=== PATIENT | female | born 1980 | race Caucasian/White ===

== ENCOUNTER 2019-08-12 09:08 | Emergency (ER) | payer OTHER, SELFPAY ==
--- NOTE | 2019-08-12 09:34 | DI.RAD.S_ITS ---
PROCEDURE: XR KNEE LT 1TO2V INDICATIONS: pain TECHNIQUE: 2 views of the knee were acquired. COMPARISON: None. FINDINGS: The patient was unable to be positioned for the standard sunrise view. Bones: No fractures or dislocations. No suspicious bony lesions. Soft tissues: No joint effusion. No suspicious soft tissue calcifications. IMPRESSION: No acute abnormality is seen on this two-view study of the knee. If there is strong clinical suspicion for internal derangement of this joint, please consider a dedicated MRI for further evaluation (assuming that there is no contraindication to MRI). Dictated by: Jeremias Vergara M.D. on 08/12/2019 at 8:51 Approved by: Jeremias Vergara M.D. on 08/12/2019 at 8:52
[2019-08-12 09:57] VITALS: PULSE 71; RESP 18; TEMP 36.7; O2SAT 100; BMI 20.5
[2019-08-12 10:06] VITALS: BP 117/80; PULSE 66; RESP 18; O2SAT 100
--- NOTE | 2019-08-12 11:35 | ED.LOWEXIN ---
HPI - Extremity Injury (Lower) <Al LaasHARJEET PlazaP - Last Filed: 08/13/19 02:32> General Chief Complaint: Extremity Injury, Lower Stated Complaint: something snapped and sharp pain L knee Time Seen by Provider: 08/12/19 11:05 Source: patient Mode of arrival: Wheelchair Limitations: no limitations History of Present Illness HPI Narrative: This is a 39-year-old female, nonsmoker, who presents to ED with significant other with chief complain of suprapatellar and lateral knee pain with mild swelling since last night. Patient initially felt something snapped on her lateral left knee when she was walking. Patient reports difficulty bearing weight and feel unstable in her left leg. Patient was actually seen by her primary care physician Dr. 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 Patient reports pain increases with flexing affected leg. She reports some muscle spasm on anterior thigh and constant aches. Patient reports mildly decreased sensation on her left leg. Patient reports intact sensation. Otherwise, patient denies any previous injuries or surgeries unaffected knee. Related Data Previous Rx's Medication Instructions Recorded hydroxyzine HCl 25 mg tablet 25 mg PO QID PRN #30 tab 12/05/18 norgestimate 0.25 mg-ethinyl 1 tab PO DAILY #168 tab 12/05/18 estradiol 35 mcg tablet cyclobenzaprine 5 - 10 mg PO BID PRN #7 tab 08/12/19 Allergies Allergy/AdvReac Type Severity Reaction Status Date / Time No Known Drug Allergies Allergy Verified 08/12/19 09:57 Review of Systems <Al AlasLICHA Robledo - Last Filed: 08/13/19 02:32> Review of Systems Narrative: General: Denies fever, chills, fatigue, malaise, sweats. HEENT: Denies sinus pain, ear pain, sore throat, difficulty swallowing, dizziness. Respiratory: Denies dyspnea, cough, wheezing, hemoptysis, sputum. Cardiovascular: Denies chest pain, palpitations, orthopnea, edema. Gastrointestinal: Denies nausea, vomiting, abdominal pain, diarrhea, constipation, melena. : Denies dysuria, frequency, incontinence, hematuria, urinary retention. Musculoskeletal: See HPI Skin: Denies rash, skin lesions, or other. Neurologic: Denies weakness, headache, numbness, change in speech, confusion, seizures, incoordination. Psychiatric: No concerning psychosocial issues. 12-point review of systems is negative except for those stated above. Patient History <LICHA Nicole - Last Filed: 08/13/19 02:32> Medical History Abnormal Pap smear of cervix (Resolved ~10/22/10) Acne (Chronic) ADD (attention deficit disorder) (Chronic) Bipolar disorder (Chronic ~2006) Chicken pox (Resolved ~1986) Osteoarthritis (Chronic ~08/20/10) Seasonal allergies (Chronic ~1993) Skin tag (Chronic) Surgical History H/O dilation and curettage (Resolved) Family History Father Diabetes mellitus Hypertension Mother Hypertension Mental health problem Social History marital status: unmarried,single number of children: 0 household members: significant other lives independently: Yes education level: college occupational status: employed Smoking Status: Never smoker alcohol intake: current substance use type: does not use Smoking Status: Never smoker Exam <LICHA Nicole - Last Filed: 08/13/19 02:32> Narrative Exam Narrative: General appearance: well developed, well nourished, in moderate distress and in tears during knee exam from discomfort. Head: normocephalic, atraumatic, no scalp lesions, non-tender. ENT: Hearing grossly intact. Nose without bleeding, purulent discharge or deviation. Mucous membrane moist, no mucosal lesion. Throat without erythema, tonsillar hypertrophy or exudate. Uvula in midline, airway patent. Neck/Thyroid: neck supple, full range of motion, no visible masses or meningeal signs. No JVD, non-tender without lymphadenopathy. Skin: no suspicious rashes, lesions over visible areas. Warm and dry and appropriate color for ethnicity. Heart: no clubbing, no cyanosis, no edema. Lungs: Breathing even and unlabored. No stridor. No accessory muscles used. Able to speak in full sentences. Chest: normal shape and expansion. Abdomen: non-obese, non-distended. Neurologic: alert and oriented. Cognitive exam, CARDIOVASCULAR SURGICAL TECH and PNS grossly intact on informal exam. Psych: good eye contact, normal affect. Initial Vital Signs Initial Vital Signs: Vital Signs Temperature 98.1 F 08/12/19 09:57 Pulse Rate 71 08/12/19 09:57 Respiratory Rate 18 08/12/19 09:57 Pulse Oximetry 100 08/12/19 09:57 Extrem Left lower extremity: knee Details: normal to inspection, tenderness Location: of the pre-patellar area and of the infrapatellar area (lateral knee), swelling Location: of the patella (lateral) and of the pre-patellar area (mild), abnormal ROM Details: pain with active ROM, pain with passive ROM and with range as follows (decreased flexion due to pain) and knee ligament exam normal Details: Ky's test normal (unable to fully exam due to discomfort) and foot Details: toes with normal ROM, no edema, vascular exam Details: dorsalis pedis pulse present and motor-sensory exam Details: light-touch normal; no tenderness <Kane Silveira MD - Last Filed: 08/13/19 07:55> Initial Vital Signs Initial Vital Signs: Vital Signs Temperature 98.1 F 08/12/19 09:57 Pulse Rate 71 08/12/19 09:57 Respiratory Rate 18 08/12/19 09:57 Pulse Oximetry 100 08/12/19 09:57 Procedures <LICHA Nicole - Last Filed: 08/13/19 02:32> Orthopedic Splinting/Casting Injury #1: Side: left Lower Extremity Injury Location: knee Lower Extremity Immobilizer: knee immobilizer Other Orthopedic Equipment: crutches Post splinting neuro exam: intact Post splinting vascular exam: intact Placed by: Nursing Scores <LICHA Nicole - Last Filed: 08/13/19 02:32> GCS [place] coma scale eye opening: Spontaneous [place] coma scale verbal response: Orientated [place] coma scale motor response: Obey commands Ronald coma scale total score: 15 Course <LICHA Nicole - Last Filed: 08/13/19 02:32> Orders Ordered: ED Orders 08/12/19 09:34 XR knee LT 1to2V Stat Vital Signs Vital signs: Vital Signs - 8 hr 08/12/19 09:57 08/12/19 10:06 Temperature 98.1 F Pulse Rate 71 66 Respiratory Rate 18 18 Blood Pressure [Left Arm] 117/80 Pulse Oximetry 100 100 <Kane Silveira MD - Last Filed: 08/13/19 07:55> Orders Ordered: ED Orders 08/12/19 09:34 XR knee LT 1to2V Stat Vital Signs Vital signs: Vital Signs - 8 hr 08/12/19 09:57 08/12/19 10:06 Temperature 98.1 F Pulse Rate 71 66 Respiratory Rate 18 18 Blood Pressure [Left Arm] 117/80 Pulse Oximetry 100 100 MDM - Extremity Injury (Lower) <LICHA Nicole - Last Filed: 08/13/19 02:32> Differential Diagnosis Differential diagnosis: Likely acute internal derangement of knee and other (knee sprain) Medical Records Attestation: I reviewed the patient's medical records. Imaging Data Xr-Knee LT: Radiologist's Impression: [address] [address] XRay Report Signed Patient: Isiah Angulo AMR#: [id number] : 1980Acct:[id number] Age/Sex: 39 / FDate of Service: 08/12/19 Loc: ED Accession Number: [id number] Procedure: XR knee LT 1to2V Ordering Provider: Kane Silveira MD PROCEDURE: XR KNEE LT 1TO2V INDICATIONS: pain TECHNIQUE: 2 views of the knee were acquired. COMPARISON: None. FINDINGS: The patient was unable to be positioned for the standard sunrise view. Bones: No fractures or dislocations. No suspicious bony lesions. Soft tissues: No joint effusion. No suspicious soft tissue calcifications. IMPRESSION: No acute abnormality is seen on this two-view study of the knee. If there is strong clinical suspicion for internal derangement of this joint, please consider a dedicated MRI for further evaluation (assuming that there is no contraindication to MRI). Dictated by: Jeremias Vergara M.D. on 08/12/2019 at 8:51 Approved by: Jeremias Vergara M.D. on 08/12/2019 at 8:52 [facility] Narrative Medical decision making narrative: This is a 39-year-old female who presents to ED with nontraumatic left knee pain with popping sensation while she was walking yesterday evening. 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 Patient had decreased mobility unaffected knee due to significant discomfort and was unable to assess adequately. She had intact sensation and pulses distally. There was mild swelling around the patella. Patient is currently waiting for physical therapy referral and treatment. Xray of knee does not appreciate acute fracture or dislocation. Affected knee was splinted on a knee immobilizer and patient discharged to home with crutches after the teaching. Patient advised to follow-up with her primary care physician and may need further imaging test and a referral to orthopedist. Patient advised to use [id number] Tylenol and or Motrin as needed with RICE therapy and muscle relaxant has been prescribed since patient complain of tensed anterior quad muscle discomfort. Patient verbalized understanding and in agreement with the treatment plan. Discharge Plan Departure Patient Disposition: Home Clinical Impression: Knee pain, left anterior Discharge Date/Time: 08/12/19 12:04 Instructions: DI for Knee Pain Activity Restrictions/Additional Instructions: You have been diagnosed with [left anterior knee discomfort, Likely ligamentous injury. X-ray test today does not show acute findings such as fractures or dislocation.]. What to do: *Take your medications as directed. Please use knee immobilizer for support and comfort. Elevate affected limb and use cool packs frequently several times a day next 24-48 hours. You can take [id number] Tylenol 650 up to 4 times a day as needed. Ibuprofen 400 mg to 600 mg up to 3 to 4 times a day with food as needed for discomfort and inflammation. Flexeril has been transmitted to [place] [email or web address] and this is muscle relaxant. In May cause drowsiness so please take precaution such as not driving, drinking alcohol, operating heavy equipments. *Follow up with your primary care provider in 2-3 days, call for an appointment. Let them know you were seen in the ED and that we asked you to be seen in follow up. *Return to ED if you have any new, worsening, or concerning symptoms, such as [increasing tingling, numbness, weakness to affected leg, chest pain, breathing difficulty, unable to tolerate fluids or any acute concerns]. Prescriptions: New cyclobenzaprine 10 mg tablet 5 - 10 mg PO BID PRN (Reason: muscle spasm) Qty: 7 RF: 0 No Action norgestimate-ethinyl estradiol [Estarylla] 0.25-35 mg-mcg tablet 1 tab PO DAILY Qty: 168 RF: 0 hydroxyzine HCl 25 mg tablet 25 mg PO QID PRN (Reason: anxiety) Qty: 30 RF: 0 Referrals: Belén Esposito DO [Primary Care Provider] -
[2019-08-12 11:52] VITALS: BP 112/76; PULSE 73; O2SAT 98
== END 2019-08-12 12:04 | disposition home or self-care (01) ==
PROVIDERS: Emergency Provider Nurse Practitioner Family; PCP Family Medicine
DX: M25.562 Pain in left knee (principal)
CPT/HCPCS: 73560; 99283

== ENCOUNTER → 2022-12-22 07:50 | Outpatient (CLI) | payer OTHER, SELFPAY ==
[2022-12-22 09:10] LABS: Influenza A - CEPHEID Flu A NEGATIVE (NEGATIVE); Influenza B - CEPHEID Flu B NEGATIVE (NEGATIVE); Respiratory Syncytial Virus Negative (Negative)
[2022-12-22 09:24] LABS: COVID-19 CEPHEID 4-PLEX PCR Negative (Negative)
== END ==
PROVIDERS: PCP Family Medicine; Visit Provider Physician Assistant
DX: J02.9 Acute pharyngitis, unspecified (principal); J06.9 Acute upper respiratory infection, unspecified
CPT/HCPCS: 0241U; 87070

== ENCOUNTER 2023-08-31 16:29 | Emergency (ER) | payer OTHER, SELFPAY ==
[2023-08-31] VITALS (16 sets, daily range): BP systolic 112–151; BP diastolic 54–75; PULSE 72–91; RESP 18; TEMP 36.7; O2SAT 94–100; BMI 22.3
--- NOTE | 2023-08-31 16:47 | ED.GIBLEED ---
HPI - GI Bleed <Prabhu Solorzano MD - Last Filed: 09/01/23 07:27> General Chief complaint: Upper Respiratory Symptoms Stated complaint: coughing up bright red blood Time Seen by Provider: 08/31/23 16:36 Source: patient Mode of arrival: Ambulatory History of Present Illness HPI Narrative: Patient here for hemoptysis just prior to arrival. Had bright red blood when she was coughing and spit on the ground. She states she tested positive for COVID about 2 weeks ago and has improved but still has a nonproductive cough until today. No prior history of blood clots in legs or lungs. Denies any chest pain or dyspnea. Denies does not want a test patient in no distress at this time. Related Data Previous Rx's Medication Instructions Recorded albuterol sulfate 90 mcg/actuation 2 puff inhalation Q4-6H PRN 12/22/22 aerosol inhaler shortness of breath or wheezing #6.7 grams norgestimate 0.25 mg-ethinyl See Rx Instructions .Route 06/28/23 estradiol 35 mcg tablet (Kandy) .COMPLEX #84 tabs Allergies Allergy/AdvReac Type Severity Reaction Status Date / Time No Known Drug Allergies Allergy Verified 06/28/23 15:34 Review of Systems <Prabhu Solorzano MD - Last Filed: 09/01/23 07:27> Review of Systems Narrative: GENERAL: negative chills, fatigue, malaise, fever, sweats. HEENT: negative sinus pain, ear pain, sore throat RESPIRATORY: negative dyspnea, positive hemoptysis/cough CARDIOVASCULAR: negative chest pain, palpitations GASTROINTESTINAL: negative nausea, vomiting, abdominal pain : negative dysuria, frequency, hematuria MUSCULOSKELETAL: negative muscle or bony pain SKIN: negative rash, skin lesions NEUROLOGIC: negative weakness, numbness ROS Unobtainable: All systems reviewed & are unremarkable except as noted in HPI and below Patient History <Prabhu Solorzano MD - Last Filed: 09/01/23 07:27> Medical History (Updated 08/31/23 @ 20:23 by Dinorah Hull MD) Skin tag Acne Osteoarthritis (~08/20/10) Seasonal allergies (~1993) ADD (attention deficit disorder) Bipolar disorder (~2006) Chicken pox (~1986) Abnormal Pap smear of cervix (~10/22/10) Surgical History H/O dilation and curettage Family History Father Diabetes mellitus Hypertension Mother Hypertension Mental health problem Social History marital status: unmarried,single number of children: 0 household members: significant other lives independently: Yes education level: college occupational status: employed Smoking Status: Never smoker alcohol intake: current substance use type: does not use Smoking Status: Never smoker Substance Use Type: does not use Exam <Prabhu Solorzano MD - Last Filed: 09/01/23 07:27> Narrative Exam Narrative: GENERAL: in no distress, not toxic not dyspneic HEAD: Normocephalic. EYES: Pupils equal round ENT: Mucous membranes moist. NECK: Trachea midline. CARDIOVASCULAR: Regular rate and rhythm RESPIRATORY: Clear to auscultation. Breath sounds equal bilaterally. No wheezes, rales, or rhonchi. GASTROINTESTINAL: Abdomen soft, non-tender EXTREMITIES: No gross deformities. BACK: No flank tenderness. NEURO: AOx4. SKIN: Warm and dry PSYCH: Not anxious, is cooperative Initial Vital Signs Initial Vital Signs: Vital Signs Pulse Rate 75 08/31/23 16:34 Pulse Oximetry 94 08/31/23 16:34 <Dinorah Hull MD - Last Filed: 09/01/23 00:18> Initial Vital Signs Initial Vital Signs: Vital Signs Pulse Rate 75 08/31/23 16:34 Pulse Oximetry 94 08/31/23 16:34 Course <Prabhu Solorzano MD - Last Filed: 09/01/23 07:27> Orders Ordered: Discontinued Medications Sodium Chloride (Normal Saline 0.9%) 1,000 mls @ 1,000 mls/hr IV BOLUS ONE Stop: 08/31/23 17:45 Last Infusion: 08/31/23 18:42 Dose: Infused Documented By: Infusion: 08/31/23 17:40 Dose: 1,000 mls/hr Documented By: Infusion: 08/31/23 17:26 Dose: 0 mls/hr Documented By: Admin: 08/31/23 17:08 Dose: 1,000 mls/hr Documented By: MARÍA Sodium Chloride (Hypertonic Saline 3%) 50 mls @ 600 mls/hr IV NOW ONE Stop: 08/31/23 19:43 Last Infusion: 08/31/23 20:14 Dose: Infused Documented By: Admin: 08/31/23 20:03 Dose: 600 mls/hr Documented By: Vital Signs Vital signs: Vital Signs - 8 hr 08/31/23 16:34 08/31/23 16:35 08/31/23 16:35 Temperature Pulse Rate 75 74 Respiratory Rate Blood Pressure 150/74 H Pulse Oximetry 94 95 Oxygen Delivery Method 08/31/23 16:37 08/31/23 17:00 08/31/23 17:01 Temperature 98.1 F Pulse Rate 72 84 Respiratory Rate 18 Blood Pressure 150/74 H 112/54 L Pulse Oximetry 95 97 Oxygen Delivery Method Room Air 08/31/23 17:01 08/31/23 17:20 08/31/23 17:35 Temperature Pulse Rate 74 73 Respiratory Rate Blood Pressure 150/67 H Pulse Oximetry 97 100 Oxygen Delivery Method 08/31/23 18:00 08/31/23 18:18 08/31/23 18:30 Temperature Pulse Rate 82 80 Respiratory Rate Blood Pressure 148/70 H Pulse Oximetry 98 99 Oxygen Delivery Method 08/31/23 19:00 08/31/23 19:30 08/31/23 19:52 Temperature Pulse Rate 78 81 Respiratory Rate 18 Blood Pressure 151/73 H Pulse Oximetry 98 98 Oxygen Delivery Method 08/31/23 19:52 08/31/23 20:00 08/31/23 20:00 Temperature Pulse Rate 91 H 78 Respiratory Rate Blood Pressure 138/64 Pulse Oximetry 98 96 Oxygen Delivery Method 08/31/23 20:30 08/31/23 20:31 Temperature Pulse Rate 74 Respiratory Rate 18 Blood Pressure 149/75 H Pulse Oximetry 98 Oxygen Delivery Method <Dinorah Hull MD - Last Filed: 09/01/23 00:18> Orders Ordered: Discontinued Medications Sodium Chloride (Normal Saline 0.9%) 1,000 mls @ 1,000 mls/hr IV BOLUS ONE Stop: 08/31/23 17:45 Last Infusion: 08/31/23 18:42 Dose: Infused Documented By: Infusion: 08/31/23 17:40 Dose: 1,000 mls/hr Documented By: Infusion: 08/31/23 17:26 Dose: 0 mls/hr Documented By: Admin: 08/31/23 17:08 Dose: 1,000 mls/hr Documented By: RB Sodium Chloride (Hypertonic Saline 3%) 50 mls @ 600 mls/hr IV NOW ONE Stop: 08/31/23 19:43 Last Infusion: 08/31/23 20:14 Dose: Infused Documented By: Admin: 08/31/23 20:03 Dose: 600 mls/hr Documented By: AB Vital Signs Vital signs: Vital Signs - 8 hr 08/31/23 16:34 08/31/23 16:35 08/31/23 16:35 Temperature Pulse Rate 75 74 Respiratory Rate Blood Pressure 150/74 H Pulse Oximetry 94 95 Oxygen Delivery Method 08/31/23 16:37 08/31/23 17:00 08/31/23 17:01 Temperature 98.1 F Pulse Rate 72 84 Respiratory Rate 18 Blood Pressure 150/74 H 112/54 L Pulse Oximetry 95 97 Oxygen Delivery Method Room Air 08/31/23 17:01 08/31/23 17:20 08/31/23 17:35 Temperature Pulse Rate 74 73 Respiratory Rate Blood Pressure 150/67 H Pulse Oximetry 97 100 Oxygen Delivery Method 08/31/23 18:00 08/31/23 18:18 08/31/23 18:30 Temperature Pulse Rate 82 80 Respiratory Rate Blood Pressure 148/70 H Pulse Oximetry 98 99 Oxygen Delivery Method 08/31/23 19:00 08/31/23 19:30 08/31/23 19:52 Temperature Pulse Rate 78 81 Respiratory Rate 18 Blood Pressure 151/73 H Pulse Oximetry 98 98 Oxygen Delivery Method 08/31/23 19:52 08/31/23 20:00 08/31/23 20:00 Temperature Pulse Rate 91 H 78 Respiratory Rate Blood Pressure 138/64 Pulse Oximetry 98 96 Oxygen Delivery Method 08/31/23 20:30 08/31/23 20:31 Temperature Pulse Rate 74 Respiratory Rate 18 Blood Pressure 149/75 H Pulse Oximetry 98 Oxygen Delivery Method MDM - GI Bleed <Prabhu Solorzano MD - Last Filed: 09/01/23 07:27> Lab Data 08/31/23 17:00 08/31/23 17:00 Labs: Lab Results 08/31/23 08/31/23 Range/Units 17:00 18:55 WBC 8.8 (4.5-11.0) X10^3/uL RBC 4.65 (4.0-5.2) X10^6/uL Hgb 13.7 (12.0-16.0) g/dL Hct 40.2 (36-46) % MCV 86.6 (80-100) fL MCH 29.4 (26-34) PG MCHC 34.0 (30-36) % RDW 12.8 (11.6-14.8) % Plt Count 368 (150-400) X10^3/uL Neut % (Auto) 63.4 (50-75) % Lymph % (Auto) 24.3 L (25-40) % [place] % (Auto) 9.5 (3-14) % Eos % (Auto) 2.0 (2-4) % Baso % (Auto) 0.8 (0-2) % Neut # (Auto) 5600 (3025-0644) /uL Lymph # (Auto) 2100 (9521-9244) /uL [place] # (Auto) 800 (0-900) /uL Eos # (Auto) 200 (0-450) /uL Baso # (Auto) 100 (0-100) /uL PT 10.7 (9.4-12.5) SECONDS INR 0.9 (0.9-1.3) Sodium 139 (137-145) mmol/L Potassium 3.9 (3.4-5.1) mmol/L Chloride 105 (98-107) mmol/L Carbon Dioxide 29 (22-32) mmol/L BUN 10 (7-17) mg/dL Creatinine 0.62 (0.52-1.04) mg/dL Estimated GFR > 60 (>60) mL/min BUN/Creatinine Ratio 16.1 (6-22) Glucose 101 H (70-100) mg/dL Lactate 0.9 (0.7-2.1) mmol/L Calcium 9.8 (8.4-10.2) mg/dL Total Bilirubin 0.6 (0.2-1.3) mg/dL AST 29 (14-36) IU/L ALT 20 (<35) IU/L Alkaline Phosphatase 82 (38-126) U/L Total Protein 8.8 H (6.3-8.2) g/dL Albumin 4.7 (3.5-5.0) g/dL Globulin 4.1 (1.7-4.1) g/dL Albumin/Globulin Ratio 1.1 (1.0-2.8) Procalcitonin < 0.03 (<0.5) ng/mL Chlamy pneumoniae PCR Not detected (Not Detect) Adenovirus (PCR) Not detected (Not Detect) B.parapertussis DNA PCR Not detected (Not Detecte) Coronavirus OC43 (PCR) Not detected (Not Detect) Coronavirus HKU1 (PCR) Not detected (Not Detect) Coronavirus 229E (PCR) Not detected (Not Detect) SARS-CoV-2 (PCR) Not detected (Not Detecte) Coronavirus NL63 (PCR) Not detected (Not Detect) Human Metapneumovir PCR Not detected (Not Detect) Influenza Type A (PCR) Not detected (Not Detect) Influenza Type B (PCR) Not detected (Not Detect) M. pneumoniae (PCR) Not detected (Not Detect) Parainfluenza 1 (PCR) Not detected (Not Detect) Parainfluenza 2 (PCR) Not detected (Not Detect) Parainfluenza 3 (PCR) Not detected (Not Detect) Parainfluenza 4 (PCR) Not detected (Not Detect) RSV (PCR) Not detected (Not Detect) Entero/Rhino (PCR) Not detected (Not Detect) Imaging Data CT scan - chest: Radiologist's Impression: [place] [id number] CT Scan Report Signed Patient: Isiah Angulo MR#: [id number] : 1980 Acct:[id number] Age/Sex: 43 / F Date of Service: 08/31/23 Loc: ED Accession Number: [id number] Procedure: CT angio chest PE protocol Ordering Provider: Prabhu Solorzano MD PROCEDURE: CT ANGIO CHEST PE PROTOCOL INDICATIONS: Hemoptysis TECHNIQUE: After the administration of intravenous contrast, 2 mm thick sections acquired from the pulmonary apices to the posterior costophrenic angles. 3-dimensional maximum intensity projection (MIP) coronal and sagittal reformats were then acquired through the thorax. For radiation dose reduction, the following was used: automated exposure control, adjustment of mA and/or kV according to patient size. COMPARISON: None. FINDINGS: Image quality: Diagnostic. Pulmonary arteries: Pulmonary arteries are normal in size, and demonstrate no intraluminal filling defects to suggest central pulmonary embolism. Lower Neck: No enlarged lymph nodes. Thyroid: No thyroid nodules which require sonographic follow up, per consensus guidelines. Axillae: No enlarged lymph nodes. Chest Wall: Unremarkable. Bones: Unremarkable. Lungs and Pleura: Multifocal areas nodular opacities within the lungs bilaterally. These are most significant in the upper lobes bilaterally. The largest focus in the left upper lobe measures 3.2 x 3.2 cm. It is cavitary in appearance. There is no appreciable rim enhancement. Heart: Heart size is normal. No pericardial effusion. Thoracic Vessels: No aortic aneurysm. Mediastinum and Belem: Multiple enlarged mediastinal lymph nodes. Esophagus: No wall thickening. No hiatal hernia. Upper Abdomen: Visualized upper abdomen solid organs and bowel loops appear normal. IMPRESSION: No pulmonary embolus. Bilateral pulmonary nodules with a large cavitary nodule in the left upper lobe as above. Appearance is suggestive of infection/inflammation particularly given suspected reactionary adenopathy. These can include etiology such as fungal or mycobacterial. While malignancy cannot be definitively excluded, short interval imaging follow-up after appropriate therapy is recommended to document resolution. Dictated by: Jossy Zhou M.D. on 08/31/2023 at 17:57 Approved by: Jossy Zhou M.D. on 08/31/2023 at 18:00 [facility] Narrative Medical decision making narrative: Patient here for hemoptysis just prior to arrival. Had bright red blood when she was coughing and spit on the ground. She states she tested positive for COVID about 2 weeks ago and has improved but still has a nonproductive cough until today. No prior history of blood clots in legs or lungs. Denies any chest pain or dyspnea. Denies does not want a test patient in no distress at this time. After history and exam CBC CMP PT INR CT PE protocol normal saline MDM CC: Hemoptysis Complicating co-morbidities: Recent COVID Data collected from: Patient Medical records reviewed: No recent visit for this complaint Differential considered: Includes but not limited to pulmonary embolism pneumonia bronchitis Exam documented above, pertinent findings include: Dry cough Lab Test results independently reviewed as above. Pertinent findings: WBC 8.8 hemoglobin 13.7 Imaging studies independently reviewed: CT chest, no pulmonary embolism there is large cavitary lesion left upper lung Consultations: Treatments: Normal saline Re-evaluations: 5:50 p.m.. Update patient finding on CT imaging. No blood clot however lesion in the left lung needs to be reviewed by cutlery grinder. Patient has low risk factors for tuberculosis. Is not homeless. No IV drug use. No recent foreign travel Discussion: Diagnosis: 6:[address] Solorzano: s/o to dr hull, Pulmonary Services has been contacted. Awaiting for call back to review for further disposition <Dinorah Hull MD - Last Filed: 09/01/23 00:18> Lab Data Labs: Lab Results 08/31/23 08/31/23 Range/Units 17:00 18:55 WBC 8.8 (4.5-11.0) X10^3/uL RBC 4.65 (4.0-5.2) X10^6/uL Hgb 13.7 (12.0-16.0) g/dL Hct 40.2 (36-46) % MCV 86.6 (80-100) fL MCH 29.4 (26-34) PG MCHC 34.0 (30-36) % RDW 12.8 (11.6-14.8) % Plt Count 368 (150-400) X10^3/uL Neut % (Auto) 63.4 (50-75) % Lymph % (Auto) 24.3 L (25-40) % [place] % (Auto) 9.5 (3-14) % Eos % (Auto) 2.0 (2-4) % Baso % (Auto) 0.8 (0-2) % Neut # (Auto) 5600 (6087-2990) /uL Lymph # (Auto) 2100 (0147-1798) /uL [place] # (Auto) 800 (0-900) /uL Eos # (Auto) 200 (0-450) /uL Baso # (Auto) 100 (0-100) /uL PT 10.7 (9.4-12.5) SECONDS INR 0.9 (0.9-1.3) Sodium 139 (137-145) mmol/L Potassium 3.9 (3.4-5.1) mmol/L Chloride 105 (98-107) mmol/L Carbon Dioxide 29 (22-32) mmol/L BUN 10 (7-17) mg/dL Creatinine 0.62 (0.52-1.04) mg/dL Estimated GFR > 60 (>60) mL/min BUN/Creatinine Ratio 16.1 (6-22) Glucose 101 H (70-100) mg/dL Lactate 0.9 (0.7-2.1) mmol/L Calcium 9.8 (8.4-10.2) mg/dL Total Bilirubin 0.6 (0.2-1.3) mg/dL AST 29 (14-36) IU/L ALT 20 (<35) IU/L Alkaline Phosphatase 82 (38-126) U/L Total Protein 8.8 H (6.3-8.2) g/dL Albumin 4.7 (3.5-5.0) g/dL Globulin 4.1 (1.7-4.1) g/dL Albumin/Globulin Ratio 1.1 (1.0-2.8) Procalcitonin < 0.03 (<0.5) ng/mL Chlamy pneumoniae PCR Not detected (Not Detect) Adenovirus (PCR) Not detected (Not Detect) B.parapertussis DNA PCR Not detected (Not Detecte) Coronavirus OC43 (PCR) Not detected (Not Detect) Coronavirus HKU1 (PCR) Not detected (Not Detect) Coronavirus 229E (PCR) Not detected (Not Detect) SARS-CoV-2 (PCR) Not detected (Not Detecte) Coronavirus NL63 (PCR) Not detected (Not Detect) Human Metapneumovir PCR Not detected (Not Detect) Influenza Type A (PCR) Not detected (Not Detect) Influenza Type B (PCR) Not detected (Not Detect) M. pneumoniae (PCR) Not detected (Not Detect) Parainfluenza 1 (PCR) Not detected (Not Detect) Parainfluenza 2 (PCR) Not detected (Not Detect) Parainfluenza 3 (PCR) Not detected (Not Detect) Parainfluenza 4 (PCR) Not detected (Not Detect) RSV (PCR) Not detected (Not Detect) Entero/Rhino (PCR) Not detected (Not Detect) MDM Narrative Medical decision making narrative: Patient here for hemoptysis just prior to arrival. Had bright red blood when she was coughing and spit on the ground. She states she tested positive for COVID about 2 weeks ago and has improved but still has a nonproductive cough until today. No prior history of blood clots in legs or lungs. Denies any chest pain or dyspnea. Denies does not want a test patient in no distress at this time. After history and exam CBC CMP PT INR CT PE protocol normal saline MDM CC: Hemoptysis Complicating co-morbidities: Recent COVID Data collected from: Patient Medical records reviewed: No recent visit for this complaint Differential considered: Includes but not limited to pulmonary embolism pneumonia bronchitis Exam documented above, pertinent findings include: Dry cough Lab Test results independently reviewed as above. Pertinent findings: WBC 8.8 hemoglobin 13.7 Imaging studies independently reviewed: CT chest, no pulmonary embolism there is large cavitary lesion left upper lung Consultations: Treatments: Normal saline Re-evaluations: 5:50 p.m.. Update patient finding on CT imaging. No blood clot however lesion in the left lung needs to be reviewed by cutlery grinder. Patient has low risk factors for tuberculosis. Is not homeless. No IV drug use. No recent foreign travel Discussion: Diagnosis: 6:[address] Solorzano: s/o to dr hull, Pulmonary Services has been contacted. Awaiting for call back to review for further disposition 1999 - Dr. Hull -care of patient is signed out to me by daytime provider. Patient did have single episode of blood-tinged sputum earlier this afternoon but has not had any recent sputum production or hemoptysis. Spoke with on-call pulmonary critical care doctor Dr. Crystal of [facility]. Pulm crit physician does not recommend inpatient management or transfer based on normal labs as well as normal vital signs, however it is extremely important that patient follows up with wildland fire fighter specialist. No antibiotic or antifungal recommendations at this time as we do not know the exact cause of this lesion. Any antibiotic or antifungal medications can be prescribed at a later date by specialist. Also recommended that patient stay at home as much as possible, and if she must leave then she should wear a mask at all times. Patient initially unable to provide sputum sample however with hypertonic saline was able to provide a specimen for culture. Acid-fast stain ordered as well. I discussed all lab and imaging findings with patient as well as specialist recommendations at bedside. Patient states that she works from home and has no problem with staying at home until she can see a specialist. Referrals provided. ED return precautions discussed at bedside. Patient expressed understanding of the plan and is in agreement at this time. All questions answered at the time of discharge. Discharge Plan Departure Patient Disposition: Home Clinical Impression: Cough with hemoptysis, Pulmonary cavitary lesion Instructions: DI for Pulmonary Nodule Activity Restrictions/Additional Instructions: Your CT today shows a lesion in your left lung of unknown origin. There is no treatment prescribed today because we do not know the exact cause of this lesion, however it was extremely important that you follow up with a pulmonary doctor to get to the bottom of this finding. Your sputum has been sent off for culture, the results may help guide your treatment in the future. Return immediately to the emergency department if you notice worsening blood in your sputum or shortness of breath. Prescriptions: No Action albuterol sulfate 90 mcg/actuation HFA aerosol inhaler 2 puff inhalation Q4-6H PRN (Reason: shortness of breath or wheezing) Qty: 6.7 0RF norgestimate-ethinyl estradiol [Kandy] 0.25-35 mg-mcg tablet See Rx Instructions .ROUTE .COMPLEX Qty: 84 0RF Dose Instruction: TAKE 1 TABLET BY MOUTH DAILY Rx Instructions: TAKE 1 TABLET BY MOUTH DAILY Referrals: Michelle Cruz DO [Physician] - Jesus Hollis MD [Physician] - Ruben Crystal MD [Non-Staff] - Emilie Campbell MD [Physician] - Belén Esposito DO [Primary Care Provider] - Juan Marrufo MD [Physician] - Stand Alone Forms: Patient Portal/API
[2023-08-31] MEDS: SODIUM CHLORIDE 0.9% 1,000 ML 1000 ML IV (17:08)
[2023-08-31 17:11] LABS: Add Manual Diff / Slide Review NO; Basophils Absolute Auto 100 /uL (0-100); Basophils Percent Auto 0.8 % (0-2); Eosinophils Absolute Auto 200 /uL (0-450); Hematocrit 40.2 % (36-46); Hemoglobin 13.7 g/dL (12.0-16.0); Lymphocytes Absolute Auto 2100 /uL (1100-4500); Lymphocytes Percent Auto 24.3 % (25-40); Mean Corpuscular Hemoglobin 29.4 PG (26-34); Mean Corpuscular Volume 86.6 fL (80-100); Monocytes Absolute Auto 800 /uL (0-900); Monocytes Percent Auto 9.5 % (3-14); Neutrophils Absolute Auto 5600 /uL (1500-7000); Neutrophils Percent Auto 63.4 % (50-75); Platelet Count 368 X10^3/uL (150-400); Red Blood Cell Count 4.65 X10^6/uL (4.0-5.2); Red Cell Distribution Width 12.8 % (11.6-14.8); White Blood Cell Count 8.8 X10^3/uL (4.5-11.0)
[2023-08-31 17:18] LABS: INR 0.9 (0.9-1.3); Prothrombin Time 10.7 SECONDS (9.4-12.5)
[2023-08-31 17:26] LABS: Alanine Aminotransferase 20 IU/L (<35); Albumin 4.7 g/dL (3.5-5.0); Albumin Globulin Ratio 1.1 (1.0-2.8); Alkaline Phosphatase 82 U/L (38-126); Aspartate Aminotransferase 29 IU/L (14-36); BUN Creatinine Ratio 16.1 (6-22); Bilirubin Total 0.6 mg/dL (0.2-1.3); Blood Urea Nitrogen 10 mg/dL (7-17); Calcium 9.8 mg/dL (8.4-10.2); Carbon Dioxide 29 mmol/L (22-32); Chloride 105 mmol/L (98-107); Estimated Glomerular Filt Rate > 60 mL/min (>60); Globulin 4.1 g/dL (1.7-4.1); Glucose 101 mg/dL (70-100); HEMOLYSIS < 15 (0-50); Potassium 3.9 mmol/L (3.4-5.1); Sodium 139 mmol/L (137-145); Total Protein 8.8 g/dL (6.3-8.2)
--- NOTE | 2023-08-31 17:26 | PC.NURSE ---
Patient went to CT department and this RN paused infusion so contrast could be used in CT.
[2023-08-31 18:19] LABS: Lactate (Lactic Acid) 0.9 mmol/L (0.7-2.1)
[2023-08-31 18:37] LABS: Procalcitonin < 0.03 ng/mL (<0.5)
[2023-08-31 19:56] LABS: Adenovirus Not Detected (Not Detect); B. parapertussis Not Detected (Not Detecte); Bordetella pertussis Not Detected (Not Detect); Chlamydophila pneumoniae Not Detected (Not Detect); Coronavirus 229E Not Detected (Not Detect); Coronavirus HKU1 Not Detected (Not Detect); Coronavirus NL 63 Not Detected (Not Detect); Coronavirus OC43 Not Detected (Not Detect); Human Metapneumovirus Not Detected (Not Detect); Human Rhinovirus/Enterovirus Not Detected (Not Detect); Influenza A Not Detected (Not Detect); Influenza B Not Detected (Not Detect); Mycoplasma pneumoniae Not Detected (Not Detect); Parainfluenza Virus 1 Not Detected (Not Detect); Parainfluenza Virus 2 Not Detected (Not Detect); Parainfluenza Virus 3 Not Detected (Not Detect); Parainfluenza Virus 4 Not Detected (Not Detect); Respiratory Syncytial Virus Not Detected (Not Detect); SARS- CoV-2 Not Detected (Not Detecte)
[2023-08-31] MEDS: SODIUM CHLORIDE 3 % 50 ML 600 ML IV (20:03)
--- NOTE | 2023-08-31 20:07 | PC.NURSE ---
Pt states that today after coming in her cough has stopped. But prior to arrival she was coughing up gerri red blood copious amounts.
--- NOTE | 2023-10-03 19:24 | PC.NURSE ---
Dr Cervantes left voicemail for [facility] to get a clear plan for follow up care. Awaiting call back. Dr Rajput aware of patient in shift change
== END 2023-08-31 20:34 | disposition home or self-care (01) ==
PROVIDERS: Emergency Medicine; Emergency Provider Emergency Medicine; PCP Family Medicine
DX: R04.2 Hemoptysis (principal); J98.4 Other disorders of lung; Z20.822 Contact with and (suspected) exposure to COVID-19; Z86.16 Personal history of COVID-19
CPT/HCPCS: 36415; 71275; 80053; 83605; 84145; 85025; 85610; 87040; 87070; 87116; 87205; 87206; 87633; 96360; 99284; Q9967

== ENCOUNTER → 2023-09-08 10:45 | Outpatient (CLI) | payer OTHER, SELFPAY ==
[2023-09-13 13:02] LABS: QuantiFERON Mitogen Value >10.00 IU/mL (.); QuantiFERON Nil Value 0.09 IU/mL (.); QuantiFERON TB Gold Plus Positive (Negative); QuantiFERON TB1 Ag Value 3.46 IU/mL (.); QuantiFERON TB2 Ag Value 2.82 IU/mL (.)
== END ==
LOC: LAB 10:47
PROVIDERS: PCP Family Medicine; Referring Provider Family Medicine; Visit Provider Family Medicine
DX: J98.4 Other disorders of lung (principal); R04.2 Hemoptysis
CPT/HCPCS: 36415; 86480

== ENCOUNTER → 2024-02-13 16:01 | Outpatient (CLI) | payer OTHER, SELFPAY ==
--- NOTE | 2024-02-13 16:03 | DI.CT.S_ITS ---
PROCEDURE: CT CHEST WO CON INDICATIONS: TUBERCULOSIS TECHNIQUE: Noncontrast 5 mm thick sections acquired from the pulmonary apices to the posterior costophrenic angles. 1 mm lung window, 5 mm thick coronal and sagittal and 7 mm axial MIP reformats were then acquired. For radiation dose reduction, the following was used: automated exposure control, adjustment of mA and/or kV according to patient size. COMPARISON: [facility], CT, CT ANGIO CHEST PE PROTOCOL, 08/31/2023, 17:28. FINDINGS: Image quality: Diagnostic. Lower Neck: No enlarged lymph nodes. Thyroid: No thyroid nodules which require sonographic follow up, per consensus guidelines. Axillae: No enlarged lymph nodes. Chest Wall: Unremarkable. Bones: Unremarkable. Lungs and Pleura: No pneumothorax or pleural effusions. Compared to CT chest dated August 31, 2023, new cystic thin walled lesion in the anterior right upper lobe measuring 1 x 1 cm (80). Additional more tubular cystic appearance in the left upper lobe appears contiguous with the bronchiectasis with thin lopez measuring up to 1.6 x 0.9 cm (2/18) (3/70, 81, 5/). Previously seen left apical cavitary lesion has involuted with a linear consolidative appearance measuring 3.2 x 1.8 cm. Redemonstration of multifocal apical predominant nodular opacities which appear mildly decreased compared to prior. Heart: Heart size is normal. No pericardial effusion. Thoracic Vessels: The aorta and pulmonary arteries demonstrate normal size. Mediastinum and Belem: No enlarged lymph nodes. Esophagus: No wall thickening. No hiatal hernia. Upper Abdomen: Visualized upper abdomen solid organs and bowel loops appear normal. IMPRESSION: 1. Compared to CT chest dated August 31, 2023, multifocal apically predominant nodular opacities appear mildly decreased compared to prior compatible with known tuberculosis. New cystic thin walled lesion in the anterior right upper lobe measuring 1 x 1 cm. Previously seen left apical cavitary lesion has involuted with a linear consolidative appearance measuring 3.2 x 1.8 cm. 2. Additional new more tubular cystic appearance in the left upper lobe appears contiguous with the bronchiectasis with thin lopez suggestive of cystic bronchiectasis, less likely cavitary lesions, measuring up to 1.6 x 0.9 cm. Attention on follow-up imaging. Dictated by: Vera Yoder M.D. on 02/15/2024 at 10:14 Approved by: Vera Yoder M.D. on 02/15/2024 at 10:30
== END ==
PROVIDERS: PCP Family Medicine; Referring Provider Internal Medicine Infectious Disease; Visit Provider Internal Medicine Infectious Disease
DX: A15.9 Respiratory tuberculosis unspecified (principal)
CPT/HCPCS: 71250

== ENCOUNTER → 2024-02-13 | Outpatient (CLI) | payer OTHER, SELFPAY ==
--- NOTE | 2024-02-13 16:04 | DI.MG.S_ITS ---
BILATERAL DIGITAL SCREENING MAMMOGRAM 3D/2D WITH CAD: 02/13/2024 CLINICAL: Baseline exam. Routine screening. Family History of Breast Cancer. No prior exams were available for comparison. Both breasts are heterogeneously dense, which may obscure small masses (category c / 51-75% glandular tissue). Current study was also evaluated with a Computer Aided Detection (CAD) system. No significant masses, calcifications, or other findings are seen in either breast. IMPRESSION: NEGATIVE There is no mammographic evidence of malignancy. A 1 year screening mammogram is recommended. Based on the Tyrer Cuzick model (a risk assessment model) the patient's lifetime risk is 19.1% and her 10 year risk is 2.7%. According to the ACR, ACS, and NCCN guidelines, an annual breast MRI exam along with mammogram is recommended if the patient's lifetime risk is 20% or greater. This exam was interpreted at Station ID: [id number]. NOTE: For mammograms, a report in lay terms will be sent to the patient. Approximately 15% of breast malignancies will not be visualized mammographically. In the management of a palpable breast mass, a negative mammogram must not discourage biopsy of a clinically suspicious lesion. Electronically Signed By: Alexa Velásquez M.D., Ph.D. eb/:02/14/2024 16:19:56 letter sent: Normal Exam ACR BI-RADS Category 1: Negative [id number]
== END ==
LOC: MAMMO 16:03
PROVIDERS: PCP Family Medicine; Referring Provider Family Medicine; Visit Provider Family Medicine
DX: Z12.31 Encounter for screening mammogram for malignant neoplasm of breast (principal); Z80.3 Family history of malignant neoplasm of breast; R92.333 Mammographic heterogeneous density, bilateral breasts
CPT/HCPCS: 77063; 77067

== ENCOUNTER → 2024-11-17 10:47 | Outpatient (CLI) | payer OTHER, SELFPAY ==
--- NOTE | 2024-11-17 10:48 | DI.MRI.S_ITS ---
PROCEDURE: MR KNEE LT WO CON INDICATIONS: patellar tracking issues/chronic left knee pain TECHNIQUE: Noncontrast sagittal PD fast spin echo and T2 fast spin echo with fat saturation, sagittal 3-D FLASH with fat saturation; coronal T1 spin echo and PD fast spin echo with fat saturation, and axial PD fast spin echo with fat saturation through the knee. COMPARISON: None. FINDINGS: Image quality: Excellent. Anterior structures: No gross evidence of patella macario or patella baja. The ratio of the length of the patellar ligament to the craniocaudad dimension of the patella is approximately 1.18. The quadriceps and patellar tendons appear intact. Patellar alignment is normal. No femoral trochlear dysplasia or ventral trochlear prominence. No edema in the infrapatellar fat pad. Menisci: The medial and lateral menisci demonstrate normal morphology and internal signal. The meniscal root ligaments appear intact. Cruciate ligaments: Mild increased T2 weighted signal of the distal anterior cruciate ligament but with intact fibers without tear. Posterior cruciate ligament is normal. Medial structures: The medial collateral ligament appears intact. The semimembranosus tendon insertion is intact. Visualized portions of the pes anserinus tendons appear normal. No abnormal bursal fluid. Lateral structures: The lateral collateral ligament, long and short heads of the biceps femoris tendon appear intact. The popliteus tendon appears normal. Iliotibial band appears normal. Bones and cartilage: Mild diffuse cartilaginous thinning in the medial greater than lateral and patellofemoral compartments without gross focal cartilage defect. No MR evidence of fracture line or abnormal bone edema. Joint space: There is physiologic knee joint fluid. No popliteal cyst. Normal appearing synovial plicae are incidentally noted. IMPRESSION: Mild cartilaginous thinning in the medial greater than lateral and patellofemoral compartments. Mild signal changes in the distal anterior cruciate ligament but with intact fibers without tear. No MR evidence of patellofemoral dysplasia or meniscal tear. Dictated by: Gilmar Godinez M.D. on 11/20/2024 at 10:10 Approved by: Gilmar Godinez M.D. on 11/20/2024 at 11:02
== END ==
PROVIDERS: PCP Family Medicine; Referring Provider Family Medicine; Visit Provider Family Medicine
DX: M22.8X2 Other disorders of patella, left knee (principal); M25.562 Pain in left knee; Z82.61 Family history of arthritis; M19.90 Unspecified osteoarthritis, unspecified site
CPT/HCPCS: 36415; 73721; 85651; 86038; 86430

== ENCOUNTER → 2024-11-17 10:49 | Outpatient (CLI) | payer OTHER, SELFPAY ==
[2024-11-17 12:40] LABS: Rheumatoid Factor < 8.6 IU/mL (<12.0)
[2024-11-17 13:18] LABS: Erythrocyte Sedimentation Rate 3 MM/HR (0-20)
[2024-11-22 09:13] LABS: ANA Screen, IFA Negative (.)
== END ==
PROVIDERS: PCP Family Medicine; Referring Provider Family Medicine; Visit Provider Family Medicine
DX: M25.562 Pain in left knee (principal); Z82.61 Family history of arthritis; M19.90 Unspecified osteoarthritis, unspecified site
CPT/HCPCS: 36415; 85651; 86038; 86430